=== PATIENT | male | born 1970 | race Caucasian/White ===

== ENCOUNTER → 2023-09-23 | Outpatient (CLI) | payer MEDICARE ==
[~2023-09-23] MED LIST: BENA25CA4 PO; FERR325T3 PO; FOLI1TAB11 PO; LEVO-88 PO; LEVO88TA3; ONDA-282 PO; ROSU20TA61
== END ==
LOC: M RAD 06:58
PROVIDERS: ATTEND Physical Therapist
DX: Z12.2 Encounter for screening for malignant neoplasm of respiratory organs (principal); F17.211 Nicotine dependence, cigarettes, in remission

== ENCOUNTER → 2023-10-12 | Outpatient (CLI) | payer MEDICARE | LOC: M PLARAD 12:57 | PROVIDERS: ATTEND Internal Medicine Hematology & Oncology | DX: R91.8 Other nonspecific abnormal finding of lung field (principal) | CPT/HCPCS: 78815; A9552 ==

== ENCOUNTER → 2023-12-18 | Outpatient (CLI) | payer MEDICARE, MEDICAID ==
[~2023-12-18] MED LIST changes: +ISOVUE-370 76% 100ML VIAL As Ordered ONE
== END ==
LOC: M RAD 07:54
PROVIDERS: ATTEND Otolaryngology
DX: Z85.21 Personal history of malignant neoplasm of larynx (principal); Z93.0 Tracheostomy status; H05.89 Other disorders of orbit
CPT/HCPCS: 70491; Q9967

== ENCOUNTER → 2024-11-15 | Outpatient (CLI) | payer MEDICARE, MEDICAID ==
[~2024-11-15] MED LIST changes: -ISOVUE-370 76% 100ML VIAL As Ordered ONE; -ROSU20TA61; +ROSU20TA86
== END ==
LOC: M RAD 14:48
PROVIDERS: ATTEND Internal Medicine Pulmonary Disease
DX: Z87.891 Personal history of nicotine dependence (principal)